=== PATIENT | female | born 1950 | race Two or more races ===

== ENCOUNTER 2017-03-25 17:25 | Emergency (ER) | payer MEDICARE ==
[2017-03-25 17:39] VITALS: PULSE 67; RESP 18
[2017-03-25] MEDS ORDERED: SODIUM CHLORIDE 0.9% 500 ML IV STA (18:09)
[2017-03-25] MEDS ORDERED: SODIUM CHLORIDE 0.9% 1,000 ML IV STA (18:09)
--- NOTE | 2017-03-25 18:12 | ED ---
General Adult HPI - General Chief complaint: Abdominal Pain Stated complaint: High blood pressure/had open heart 02/27/17 Time Seen by Provider: 03/25/17 17:51 Source: patient, family, RN notes reviewed, old records reviewed Mode of arrival: wheelchair Limitations: no limitations - History of Present Illness Initial comments: Patient 67-year-old female status post aortic ascending aneurysm repair times one month, who presents emergency room today with a chief complaint of lightheadedness times a week. She admits that she is on Augmentin 500/125 for urinary tract infection over this past week as well. She states she has had a little upset stomach. Denies any nausea, vomiting, diarrhea. Denies any specific abdominal pain. Admits that she has also had some sinus congestion and believes she has a sinus infection stating that the feeling that gets rid of them is Augmentin 875. Patient states she's tried amoxicillin 500 mg in the past for these with no relief. Patient does admit that she does see cardiology a week ago for routine follow-up and told them both lightheadedness that had started. This did not seem concerned. No blood work was obtained. States she' s had this lightheadedness now for the past weeks does seem to be worse with certain movements. She admits that it's worse when she bends forward. Patient denies any other complaints. Patient denies any recent fever, chills, shortness of breath, chest pain, back pain, nausea or vomiting, numbness or tingling, dysuria or hematuria, constipation or diarrhea, headaches or visual changes, or any other complaints. - Related Data Home Medications Medication Instructions Recorded Confirmed Acetaminophen Tab [Tylenol Tab] 1,000 mg PO TID 03/25/17 03/25/17 Amoxicillin/Potassium Clav 1 tab PO Q12HR 03/25/17 03/25/17 [Augmentin 500-125 Tablet] Aspirin 325 mg PO DAILY 03/25/17 03/25/17 Docusate [Colace] 100 mg PO BID 03/25/17 03/25/17 Lisinopril [Zestril] 20 mg PO BID 03/25/17 03/25/17 Metoprolol Tartrate [Lopressor] 50 mg PO BID 03/25/17 03/25/17 hydrALAZINE HCL [Apresoline] 10 mg PO TID 03/25/17 03/25/17 traZODone HCL 25 mg PO HS 03/25/17 03/25/17 Previous Rx's Medication Instructions Recorded Amoxicillin/Potassium Clav 1 each PO Q12HR #20 tab 03/25/17 [Augmentin 875-125 Tablet] Allergies Allergy/AdvReac Type Severity Reaction Status Date / Time cephalexin [From Keflex] Allergy Rash/Hives Verified 03/25/17 17:33 Corticosteroids Allergy Rash/Hives Verified 03/25/17 17:33 (Glucocorticoids) ciprofloxacin [From Cipro] AdvReac Rash/Hives Verified 03/25/17 17:33 sulfamethoxazole AdvReac Rash/Hives Verified 03/25/17 17:33 [From Bactrim] trimethoprim [From Bactrim] AdvReac Rash/Hives Verified 03/25/17 17:33 Review of Systems ROS Statement: Those systems with pertinent positive or pertinent negative responses have been documented in the HPI. ROS Other: All systems not noted in ROS Statement are negative. Past Medical History Past Medical History: Hypertension Additional Past Medical History / Comment(s): AAA repair (February 27 2017.) History of Any Multi-Drug Resistant Organisms: None Reported Past Surgical History: Section Additional Past Surgical History / Comment(s): AAA repair Past Psychological History: No Psychological Hx Reported Smoking Status: Current every day smoker Past Alcohol Use History: None Reported Past Drug Use History: None Reported General Exam - General Exam Comments Initial Comments: General: The patient is awake and alert, in no distress, and does not appear acutely ill. Eye: Pupils are equal, round and reactive to light, extra-ocular movements are intact. No nystagmus. There is normal conjunctiva bilaterally. No signs of icterus. Ears, nose, mouth and throat: There are moist mucous membranes and no oral lesions. Tender over both frontal and maxillary sinuses. Neck: The neck is supple, there is no tenderness or JVD. Cardiovascular: There is a regular rate and rhythm. No murmur, rub or gallop is appreciated. Respiratory: Lungs are clear to auscultation, respirations are non-labored, breath sounds are equal. No wheezes, stridor, rales, or rhonchi. Gastrointestinal: Soft, non-distended, non-tender abdomen without masses or organomegaly noted. There is no rebound or guarding present. No CVA tenderness. Bowel sounds are unremarkable. Musculoskeletal: Normal ROM, no tenderness. Strength 5/5. Sensation intact. Pulses equal bilaterally 2+. Neurological: A&O x 3. CN II-XII intact, There are no obvious motor or sensory deficits. Coordination appears grossly intact. Speech is normal. Skin: Skin is warm and dry and no rashes or lesions are noted. Psychiatric: Cooperative, appropriate mood & affect, normal judgment. Limitations: no limitations Course Vital Signs 03/25/17 03/25/17 17:33 19:02 Temperature 97.9 F Pulse Rate 67 Respiratory 18 Rate Blood Pressure 135/70 155/72 O2 Sat by Pulse 97 Oximetry EKG Findings - EKG Comments: EKG Findings:: EKG performed at 1815: A 12-lead EKG was performed and interpreted by me as showing the following: Rate is 68, and rhythm is normal sinus. There are normal QRS complexes and normal R-wave progression. ST segments have no elevation or depression, and [place] segments appear normal. Medical Decision Making - Medical Decision Making Patient reexamined at this time shows no signs of distress. Patient's EKG shows normal sinus rhythm. Chest x-rays unremarkable. Patient resting comfortably feeling better here in the emergency room. Labs been reviewed. Patient does have tenderness over the sinuses. His patient convinced that the Augmentin 500 mg of amoxicillin will not work for her symptoms.Case discussed in detail with attending physician Dr. Rico. Patient will be discharged home advised follow-up family doctor in her surgeon. Advised to use antibiotic as prescribed. Will be given prescription for Augmentin. Advised return if any symptoms increase or worsen or for any other concerns. - Lab Data Result diagrams: 03/25/17 18:10 03/25/17 18:10 Lab Results 03/25/17 03/25/17 03/25/17 Range/Units 18:10 18:10 18:10 WBC 8.5 (3.8-10.6) k/uL RBC 3.82 (3.80-5.40) m/uL Hgb 12.0 (11.4-16.0) gm/dL Hct 35.3 (34.0-46.0) % MCV 92.3 (80.0-100.0) fL MCH 31.5 (25.0-35.0) pg MCHC 34.1 (31.0-37.0) g/dL RDW 13.9 (11.5-15.5) % Plt Count 375 (150-450) k/uL Neutrophils % 74 % Lymphocytes % 14 % Monocytes % 5 % Eosinophils % 5 % Basophils % 1 % Neutrophils # 6.3 (1.3-7.7) k/uL Lymphocytes # 1.2 (1.0-4.8) k/uL Monocytes # 0.4 (0-1.0) k/uL Eosinophils # 0.4 (0-0.7) k/uL Basophils # 0.0 (0-0.2) k/uL PT 10.3 (9.0-12.0) sec INR 1.0 (<1.1) APTT 24.8 (22.0-30.0) sec Sodium 133 L (137-145) mmol/L Potassium 5.4 H (3.5-5.1) mmol/L Chloride 99 (98-107) mmol/L Carbon Dioxide 25 (22-30) mmol/L Anion Gap 9 mmol/L BUN 23 H (7-17) mg/dL Creatinine 0.90 (0.52-1.04) mg/dL Est GFR (MDRD) Af Amer >60 (>60 ml/min/1.73 sqM) Est GFR (MDRD) Non-Af >60 (>60 ml/min/1.73 sqM) Glucose 95 (74-99) mg/dL Calcium 12.1 H (8.4-10.2) mg/dL Total Bilirubin 0.5 (0.2-1.3) mg/dL AST 14 (14-36) U/L ALT 25 (9-52) U/L Alkaline Phosphatase 120 (38-126) U/L Troponin I (0.000-0.034) ng/mL Total Protein 7.1 (6.3-8.2) g/dL Albumin 4.2 (3.5-5.0) g/dL Urine Color Urine Appearance (Clear) Urine pH (5.0-8.0) Ur Specific [place] (1.001-1.035) Urine Protein (Negative) Urine Glucose (UA) (Negative) Urine Ketones (Negative) Urine Blood (Negative) Urine Nitrite (Negative) Urine Bilirubin (Negative) Urine Urobilinogen (<2.0) mg/dL Ur Leukocyte Esterase (Negative) 03/25/17 03/25/17 Range/Units 18:10 18:10 WBC (3.8-10.6) k/uL RBC (3.80-5.40) m/uL Hgb (11.4-16.0) gm/dL Hct (34.0-46.0) % MCV (80.0-100.0) fL MCH (25.0-35.0) pg MCHC (31.0-37.0) g/dL RDW (11.5-15.5) % Plt Count (150-450) k/uL Neutrophils % % Lymphocytes % % Monocytes % % Eosinophils % % Basophils % % Neutrophils # (1.3-7.7) k/uL Lymphocytes # (1.0-4.8) k/uL Monocytes # (0-1.0) k/uL Eosinophils # (0-0.7) k/uL Basophils # (0-0.2) k/uL PT (9.0-12.0) sec INR (<1.1) APTT (22.0-30.0) sec Sodium (137-145) mmol/L Potassium (3.5-5.1) mmol/L Chloride (98-107) mmol/L Carbon Dioxide (22-30) mmol/L Anion Gap mmol/L BUN (7-17) mg/dL Creatinine (0.52-1.04) mg/dL Est GFR (MDRD) Af Amer (>60 ml/min/1.73 sqM) Est GFR (MDRD) Non-Af (>60 ml/min/1.73 sqM) Glucose (74-99) mg/dL Calcium (8.4-10.2) mg/dL Total Bilirubin (0.2-1.3) mg/dL AST (14-36) U/L ALT (9-52) U/L Alkaline Phosphatase (38-126) U/L Troponin I <0.012 (0.000-0.034) ng/mL Total Protein (6.3-8.2) g/dL Albumin (3.5-5.0) g/dL Urine Color Colorless Urine Appearance Clear (Clear) Urine pH 5.5 (5.0-8.0) Ur Specific [place] 1.004 (1.001-1.035) Urine Protein Negative (Negative) Urine Glucose (UA) Negative (Negative) Urine Ketones Negative (Negative) Urine Blood Negative (Negative) Urine Nitrite Negative (Negative) Urine Bilirubin Negative (Negative) Urine Urobilinogen <2.0 (<2.0) mg/dL Ur Leukocyte Esterase Negative (Negative) Disposition Clinical Impression: Acute sinusitis Disposition: HOME SELF-CARE Condition: Good Instructions: Sinusitis (ED) Additional Instructions: Please discontinue previous antibiotic and begin new prescription of Augmentin. Please follow-up with family doctor in the next 2 days of symptoms. Please return to emergency room if the symptoms increase or worsen or for any other concerns. Prescriptions: Amoxicillin/Potassium Clav [Augmentin 875-125 Tablet] 1 each PO Q12HR #20 tab Referrals: Donavan Ruiz MD [Primary Care Provider] - 1-2 days Time of Disposition: 19:27
[2017-03-25 18:22] LABS: Appearance,Urine Clear (Clear); Basophils % (A) 1 %; Bilirubin,Urine Negative (Negative); CH 30.3; Eosinophils # (A) 0.4 k/uL (0-0.7); Eosinophils % (A) 5 %; Glucose,Urine (UA) Negative (Negative); HCT 35.3 % (34.0-46.0); HDW 2.91; Ketones,Urine Negative (Negative); Leukocyte Esterase,Urine Negative (Negative); Luc % (Auto) 2; Lymphocytes # (A) 1.2 k/uL (1.0-4.8); Lymphocytes % (A) 14 %; MCH 31.5 pg (25.0-35.0); MCHC 34.1 g/dL (31.0-37.0); MCV 92.3 fL (80.0-100.0); Mean Platelet Volume 6.9; Monocytes # (A) 0.4 k/uL (0-1.0); Monocytes % (A) 5 %; Neutrophils # (A) 6.3 k/uL (1.3-7.7); Neutrophils % (A) 74 %; Nitrite,Urine Negative (Negative); PH, Urine 5.5 (5.0-8.0); Protein,Urine Negative (Negative); RBC 3.82 m/uL (3.80-5.40); RDW 13.9 % (11.5-15.5); Specific Gravity,Urine 1.004 (1.001-1.035); UA Billing (MACRO vs. MICRO) CHEM; Urobilinogen,Urine <2.0 mg/dL (<2.0); WBC 8.5 k/uL (3.8-10.6); WBC (Perox) 9.13
[2017-03-25 18:35] LABS: Partial Thromboplastin Time 24.8 sec (22.0-30.0); Prothrombin Time 10.3 sec (9.0-12.0)
[2017-03-25 18:37] LABS: ALT 25 U/L (9-52); AST 14 U/L (14-36); Alkaline Phosphatase 120 U/L (38-126); Anion Gap 9 mmol/L; Blood Urea Nitrogen 23 mg/dL (7-17); Calcium 12.1 mg/dL (8.4-10.2); Carbon Dioxide 25 mmol/L (22-30); Chloride 99 mmol/L (98-107); Glucose 95 mg/dL (74-99); Non-African American GFR(MDRD) >60 (>60 ml/min/1.73 sqM); Potassium 5.4 mmol/L (3.5-5.1); Sodium 133 mmol/L (137-145); Total Bilirubin 0.5 mg/dL (0.2-1.3); Total Protein 7.1 g/dL (6.3-8.2)
--- NOTE | 2017-03-25 18:40 | XR ---
EXAMINATION TYPE: XR chest 2V DATE OF EXAM: 03/25/2017 COMPARISON: 07/14/2016 HISTORY: Dizziness TECHNIQUE: Frontal and lateral views of the chest are obtained. FINDINGS: Heart is enlarged. Thoracic aorta is atheromatous. There is no heart failure. Bones are so mewhat osteopenic. There is slight blunting of left costophrenic angle. There are sternal wires. IMPRESSION: Cardiomegaly. Atheromatous aorta. No acute lung disease. There is new minimal pleural re action at the left lateral lung base compared to old exam.
[2017-03-25 19:46] VITALS: BP 150/75; TEMP 97.7
== END 2017-03-25 19:46 | disposition home or self-care (01) ==
LOC: EC 17:25
DX: J01.90 Acute sinusitis, unspecified (principal); I10 Essential (primary) hypertension; F17.200 Nicotine dependence, unspecified, uncomplicated; Z98.890 Other specified postprocedural states; Z88.1 Allergy status to other antibiotic agents; Z88.2 Allergy status to sulfonamides; Z88.8 Allergy status to other drugs, medicaments and biological substances; Z79.82 Long term (current) use of aspirin; Z79.899 Other long term (current) drug therapy
CPT/HCPCS: 36415; 71020; 80053; 81003; 84484; 85025; 85610; 85730; 87086; 93005; 96360; 99284

== ENCOUNTER 2017-04-06 23:58 | Emergency (ER) | payer MEDICARE ==
[2017-04-07 00:53] LABS: Basophils % (A) 0 %; CH 30.9; CHCM 32.9; Eosinophils # (A) 0.7 k/uL (0-0.7); Eosinophils % (A) 7 %; HCT 34.4 % (34.0-46.0); HDW 2.63; HGB 11.1 gm/dL (11.4-16.0); Luc # (Auto) 0.12; Luc % (Auto) 1; Lymphocytes # (A) 1.8 k/uL (1.0-4.8); Lymphocytes % (A) 19 %; MCH 30.5 pg (25.0-35.0); MCHC 32.3 g/dL (31.0-37.0); MCV 94.3 fL (80.0-100.0); Monocytes # (A) 0.5 k/uL (0-1.0); Monocytes % (A) 5 %; Neutrophils # (A) 6.5 k/uL (1.3-7.7); Neutrophils % (A) 68 %; RBC 3.65 m/uL (3.80-5.40); RDW 14.7 % (11.5-15.5); WBC 9.6 k/uL (3.8-10.6); WBC (Perox) 9.63
[2017-04-07] MEDS ORDERED: ENALAPRILAT 1.25 MG/ML 1 ML VIAL IVP STA (00:56)
--- NOTE | 2017-04-07 01:04 | ED ---
General Adult HPI - General Chief complaint: Dizziness Stated complaint: high blood pressure/dizzy Time Seen by Provider: 04/07/17 00:30 Source: patient Mode of arrival: wheelchair Limitations: no limitations - History of Present Illness Initial comments: This patient is a 67-year-old woman who comes to the hospital with complaints about her blood pressure being elevated. She states she is concerned because she has had previous aortic aneurysm repair and was told that she needs to keep her blood pressure control. Her blood pressure has been elevated since early today. She has tried taking her medication and rechecked her blood pressure and it remains elevated. The patient is denying any symptoms related to the blood pressure being elevated much she states she is very anxious. She is not having headache, chest pain, abdominal pain, or any cough or dyspnea or neurologic symptoms. -: hour(s) Consistency: constant Improves with: none Worsens with: none Associated Symptoms: denies other symptoms Treatments Prior to Arrival: other (Antihypertensives) - Related Data Home Medications Medication Instructions Recorded Confirmed Acetaminophen Tab [Tylenol Tab] 1,000 mg PO TID 03/25/17 04/07/17 Amoxicillin/Potassium Clav 1 tab PO Q12HR 03/25/17 04/07/17 [Augmentin 500-125 Tablet] Aspirin 325 mg PO DAILY 03/25/17 04/07/17 Docusate [Colace] 100 mg PO BID 03/25/17 04/07/17 Lisinopril [Zestril] 20 mg PO BID 03/25/17 04/07/17 Metoprolol Tartrate [Lopressor] 50 mg PO BID 03/25/17 04/07/17 hydrALAZINE HCL [Apresoline] 10 mg PO TID 03/25/17 04/07/17 traZODone HCL 25 mg PO HS 03/25/17 04/07/17 Previous Rx's Medication Instructions Recorded Amoxicillin/Potassium Clav 1 each PO Q12HR #20 tab 03/25/17 [Augmentin 875-125 Tablet] ALPRAZolam [Xanax] 0.5 mg PO DAILY PRN #10 tablet 04/07/17 Diazepam [Valium] 2 mg PO BID PRN #14 tab 04/07/17 Allergies Allergy/AdvReac Type Severity Reaction Status Date / Time cephalexin [From Keflex] Allergy Rash/Hives Verified 04/07/17 00:05 Corticosteroids Allergy Rash/Hives Verified 04/07/17 00:05 (Glucocorticoids) ciprofloxacin [From Cipro] AdvReac Rash/Hives Verified 04/07/17 00:05 sulfamethoxazole AdvReac Rash/Hives Verified 04/07/17 00:05 [From Bactrim] trimethoprim [From Bactrim] AdvReac Rash/Hives Verified 04/07/17 00:05 Review of Systems ROS Statement: Those systems with pertinent positive or pertinent negative responses have been documented in the HPI. ROS Other: All systems not noted in ROS Statement are negative. Constitutional: Denies: fever, weakness Eyes: Denies: vision change Respiratory: Denies: cough, dyspnea Cardiovascular: Denies: chest pain, palpitations, orthopnea, syncope Gastrointestinal: Denies: abdominal pain, vomiting, diarrhea Musculoskeletal: Denies: back pain Neurological: Denies: headache, weakness, paresthesias Psychiatric: Reports: anxiety Past Medical History Past Medical History: Hypertension Additional Past Medical History / Comment(s): AAA repair (February 27 2017.) History of Any Multi-Drug Resistant Organisms: None Reported Past Surgical History: Section Additional Past Surgical History / Comment(s): AAA repair Past Psychological History: No Psychological Hx Reported Smoking Status: Current every day smoker Past Alcohol Use History: None Reported Past Drug Use History: None Reported General Exam Limitations: no limitations General appearance: alert, in no apparent distress, anxious Head exam: Present: atraumatic, normocephalic ENT exam: Present: normal oropharynx Respiratory exam: Present: normal lung sounds bilaterally. Absent: respiratory distress, wheezes, rales, rhonchi, stridor Cardiovascular Exam: Present: regular rate, normal rhythm, normal heart sounds. Absent: systolic murmur, diastolic murmur, rubs, gallop GI/Abdominal exam: Present: soft. Absent: distended, tenderness, guarding, rebound, rigid Extremities exam: Present: normal inspection, normal capillary refill. Absent: pedal edema, calf tenderness Back exam: Present: normal inspection. Absent: CVA tenderness (R), CVA tenderness (L) Neurological exam: Present: alert Skin exam: Present: warm, dry, intact, normal color. Absent: rash Course Vital Signs 04/07/17 04/07/17 04/07/17 00:02 00:58 01:24 Temperature 98.0 F Pulse Rate 61 58 L 66 Respiratory 18 18 18 Rate Blood Pressure 190/84 163/75 175/81 O2 Sat by Pulse 99 98 96 Oximetry 04/07/17 04/07/17 01:33 02:37 Temperature 97.4 F L Pulse Rate 66 70 Respiratory 18 16 Rate Blood Pressure 176/84 143/72 O2 Sat by Pulse 97 97 Oximetry EKG Findings - EKG Results: EKG: interpreted by ERMD, WNL, sinus rhythm (Rate 62 bpm), normal axis, normal QRS, normal ST/T, no acute changes - IN, Pacemaker, Normal: Normal tracing: normal tracing Medical Decision Making - Lab Data Result diagrams: 04/07/17 00:25 04/07/17 00:25 Lab Results 04/07/17 04/07/17 04/07/17 Range/Units 00:25 00:25 00:25 WBC 9.6 (3.8-10.6) k/uL RBC 3.65 L (3.80-5.40) m/uL Hgb 11.1 L (11.4-16.0) gm/dL Hct 34.4 (34.0-46.0) % MCV 94.3 (80.0-100.0) fL MCH 30.5 (25.0-35.0) pg MCHC 32.3 (31.0-37.0) g/dL RDW 14.7 (11.5-15.5) % Plt Count 328 (150-450) k/uL Neutrophils % 68 % Lymphocytes % 19 % Monocytes % 5 % Eosinophils % 7 % Basophils % 0 % Neutrophils # 6.5 (1.3-7.7) k/uL Lymphocytes # 1.8 (1.0-4.8) k/uL Monocytes # 0.5 (0-1.0) k/uL Eosinophils # 0.7 (0-0.7) k/uL Basophils # 0.0 (0-0.2) k/uL Sodium 134 L (137-145) mmol/L Potassium 5.4 H (3.5-5.1) mmol/L Chloride 100 (98-107) mmol/L Carbon Dioxide 25 (22-30) mmol/L Anion Gap 9 mmol/L BUN 25 H (7-17) mg/dL Creatinine 0.90 (0.52-1.04) mg/dL Est GFR (MDRD) Af Amer >60 (>60 ml/min/1.73 sqM) Est GFR (MDRD) Non-Af >60 (>60 ml/min/1.73 sqM) Glucose 89 (74-99) mg/dL Plasma Lactic Acid [place] (0.7-2.0) mmol/L Calcium 11.7 H (8.4-10.2) mg/dL Total Bilirubin 0.2 (0.2-1.3) mg/dL AST 13 L (14-36) U/L ALT 23 (9-52) U/L Alkaline Phosphatase 91 (38-126) U/L Troponin I <0.012 (0.000-0.034) ng/mL Total Protein 6.6 (6.3-8.2) g/dL Albumin 3.9 (3.5-5.0) g/dL Urine Color Urine Appearance (Clear) Urine pH (5.0-8.0) Ur Specific [place] (1.001-1.035) Urine Protein (Negative) Urine Glucose (UA) (Negative) Urine Ketones (Negative) Urine Blood (Negative) Urine Nitrite (Negative) Urine Bilirubin (Negative) Urine Urobilinogen (<2.0) mg/dL Ur Leukocyte Esterase (Negative) 04/07/17 04/07/17 Range/Units 00:50 02:00 WBC (3.8-10.6) k/uL RBC (3.80-5.40) m/uL Hgb (11.4-16.0) gm/dL Hct (34.0-46.0) % MCV (80.0-100.0) fL MCH (25.0-35.0) pg MCHC (31.0-37.0) g/dL RDW (11.5-15.5) % Plt Count (150-450) k/uL Neutrophils % % Lymphocytes % % Monocytes % % Eosinophils % % Basophils % % Neutrophils # (1.3-7.7) k/uL Lymphocytes # (1.0-4.8) k/uL Monocytes # (0-1.0) k/uL Eosinophils # (0-0.7) k/uL Basophils # (0-0.2) k/uL Sodium (137-145) mmol/L Potassium (3.5-5.1) mmol/L Chloride (98-107) mmol/L Carbon Dioxide (22-30) mmol/L Anion Gap mmol/L BUN (7-17) mg/dL Creatinine (0.52-1.04) mg/dL Est GFR (MDRD) Af Amer (>60 ml/min/1.73 sqM) Est GFR (MDRD) Non-Af (>60 ml/min/1.73 sqM) Glucose (74-99) mg/dL Plasma Lactic Acid [place] 0.7 (0.7-2.0) mmol/L Calcium (8.4-10.2) mg/dL Total Bilirubin (0.2-1.3) mg/dL AST (14-36) U/L ALT (9-52) U/L Alkaline Phosphatase (38-126) U/L Troponin I (0.000-0.034) ng/mL Total Protein (6.3-8.2) g/dL Albumin (3.5-5.0) g/dL Urine Color Colorless Urine Appearance Clear (Clear) Urine pH 7.0 (5.0-8.0) Ur Specific [place] 1.003 (1.001-1.035) Urine Protein Negative (Negative) Urine Glucose (UA) Negative (Negative) Urine Ketones Negative (Negative) Urine Blood Negative (Negative) Urine Nitrite Negative (Negative) Urine Bilirubin Negative (Negative) Urine Urobilinogen <2.0 (<2.0) mg/dL Ur Leukocyte Esterase Negative (Negative) Disposition Clinical Impression: Hypertension Disposition: HOME SELF-CARE Condition: Good Instructions: Hypertension (ED) Prescriptions: ALPRAZolam [Xanax] 0.5 mg PO DAILY PRN #10 tablet PRN Reason: Anxiety Diazepam [Valium] 2 mg PO BID PRN #14 tab PRN Reason: Anxiety Referrals: Donavan Ruiz MD [Primary Care Provider] - 1-2 days
[2017-04-07 01:12] LABS: ALT 23 U/L (9-52); AST 13 U/L (14-36); Alkaline Phosphatase 91 U/L (38-126); Anion Gap 9 mmol/L; Blood Urea Nitrogen 25 mg/dL (7-17); Calcium 11.7 mg/dL (8.4-10.2); Carbon Dioxide 25 mmol/L (22-30); Chloride 100 mmol/L (98-107); Glucose 89 mg/dL (74-99); Non-African American GFR(MDRD) >60 (>60 ml/min/1.73 sqM); Potassium 5.4 mmol/L (3.5-5.1); Sodium 134 mmol/L (137-145); Total Bilirubin 0.2 mg/dL (0.2-1.3); Total Protein 6.6 g/dL (6.3-8.2)
--- NOTE | 2017-04-07 01:19 | XR ---
EXAM: XR Chest, 1 View CLINICAL HISTORY: Reason: dizziness TECHNIQUE: Frontal view of the chest. COMPARISON: Chest x-ray dated 03/25/2017 FINDINGS: Lungs: Unremarkable. No consolidation. Pleural space: Unremarkable. No pneumothorax. Heart: Heart is again noted to be enlarged. No evidence of heart failure. Mediastinum: Unchanged. Bones/joints: Osteopenia is again suggested. Sternotomy wires are again seen. Vasculature: Thoracic aorta is at the atheromatous. IMPRESSION: Cardiomegaly, unchanged. No acute lung findings. No significant interval change.
[2017-04-07] MEDS ORDERED: DIAZEPAM 5 MG/ML 2 ML SYRINGE IVP STA (01:40)
[2017-04-07 02:09] LABS: Appearance,Urine Clear (Clear); Bilirubin,Urine Negative (Negative); Glucose,Urine (UA) Negative (Negative); Ketones,Urine Negative (Negative); Leukocyte Esterase,Urine Negative (Negative); Nitrite,Urine Negative (Negative); Protein,Urine Negative (Negative); Specific Gravity,Urine 1.003 (1.001-1.035); UA Billing (MACRO vs. MICRO) CHEM; Urobilinogen,Urine <2.0 mg/dL (<2.0)
[2017-04-07 02:39] VITALS: BP 143/72; PULSE 70; RESP 16; TEMP 97.4
== END 2017-04-07 03:22 | disposition home or self-care (01) ==
LOC: EC 23:58
DX: I10 Essential (primary) hypertension (principal); F41.9 Anxiety disorder, unspecified; F17.200 Nicotine dependence, unspecified, uncomplicated; Z88.1 Allergy status to other antibiotic agents; Z88.2 Allergy status to sulfonamides; Z88.8 Allergy status to other drugs, medicaments and biological substances; Z79.1 Long term (current) use of non-steroidal anti-inflammatories (NSAID); Z79.82 Long term (current) use of aspirin; Z79.899 Other long term (current) drug therapy
CPT/HCPCS: 99284; 96374; 96375; 36415; 93005; 80053; 83605; 84484; 85025; 81003; 71010; J3360

== ENCOUNTER 2017-05-08 00:30 | Emergency (ER) | payer MEDICARE ==
[2017-05-08 00:39] VITALS: TEMP 97.3
--- NOTE | 2017-05-08 00:56 | ED ---
General Adult HPI - General Chief complaint: Recheck/Abnormal Lab/Rx Stated complaint: problems post op Time Seen by Provider: 05/08/17 00:40 Source: patient, RN notes reviewed Mode of arrival: wheelchair Limitations: no limitations - History of Present Illness Initial comments: 67-year-old female presents emergency Department with concerns that she may have disrupted her sternal wire. Patient states that she lifted a box have reviewed and she thought yesterday. Patient states she had thoracic aneurysm repair performed at [facility] 2 months ago. She states she's also slipped bending over 10 pounds states that this box was heavier than that. She states that she had a little bit of pain in her lower rib and chest wall region. She states that she thought she heard some clicking and was concerned about this. She states pain is not worsened usual this time denies any shortness breath no fever or chills. She denies any abdominal pain and states that her hernia is a normal size as it usually is. - Related Data Home Medications Medication Instructions Recorded Confirmed Acetaminophen Tab [Tylenol Tab] 1,000 mg PO TID 03/25/17 04/07/17 Amoxicillin/Potassium Clav 1 tab PO Q12HR 03/25/17 04/07/17 [Augmentin 500-125 Tablet] Aspirin 325 mg PO DAILY 03/25/17 04/07/17 Docusate [Colace] 100 mg PO BID 03/25/17 04/07/17 Lisinopril [Zestril] 20 mg PO BID 03/25/17 04/07/17 Metoprolol Tartrate [Lopressor] 50 mg PO BID 03/25/17 04/07/17 hydrALAZINE HCL [Apresoline] 10 mg PO TID 03/25/17 04/07/17 traZODone HCL 25 mg PO HS 03/25/17 04/07/17 Previous Rx's Medication Instructions Recorded Amoxicillin/Potassium Clav 1 each PO Q12HR #20 tab 03/25/17 [Augmentin 875-125 Tablet] ALPRAZolam [Xanax] 0.5 mg PO DAILY PRN #10 tablet 04/07/17 Diazepam [Valium] 2 mg PO BID PRN #14 tab 04/07/17 Allergies Allergy/AdvReac Type Severity Reaction Status Date / Time cephalexin [From Keflex] Allergy Rash/Hives Verified 05/08/17 00:39 Corticosteroids Allergy Rash/Hives Verified 05/08/17 00:39 (Glucocorticoids) ciprofloxacin [From Cipro] AdvReac Rash/Hives Verified 05/08/17 00:39 sulfamethoxazole AdvReac Rash/Hives Verified 05/08/17 00:39 [From Bactrim] trimethoprim [From Bactrim] AdvReac Rash/Hives Verified 05/08/17 00:39 Review of Systems ROS Statement: Those systems with pertinent positive or pertinent negative responses have been documented in the HPI. ROS Other: All systems not noted in ROS Statement are negative. Past Medical History Past Medical History: Hypertension Additional Past Medical History / Comment(s): AAA repair (February 27 2017.) History of Any Multi-Drug Resistant Organisms: None Reported Past Surgical History: Section Additional Past Surgical History / Comment(s): AAA repair Past Psychological History: No Psychological Hx Reported Smoking Status: Current every day smoker Past Alcohol Use History: None Reported Past Drug Use History: None Reported General Exam Limitations: no limitations General appearance: alert, in no apparent distress Head exam: Present: atraumatic, normocephalic, normal inspection Neck exam: Present: normal inspection. Absent: tenderness, meningismus, lymphadenopathy Respiratory exam: Present: normal lung sounds bilaterally, chest wall tenderness (Mild lower sternal tenderness), other (CHEST wall surgical scar). Absent: respiratory distress, wheezes, rales, rhonchi, stridor Cardiovascular Exam: Present: regular rate, normal rhythm, normal heart sounds. Absent: systolic murmur, diastolic murmur, rubs, gallop, clicks GI/Abdominal exam: Present: soft, normal bowel sounds, hernia (Large ventral hernia). Absent: distended, tenderness, guarding, rebound, rigid Course Vital Signs 05/08/17 00:35 Temperature 97.3 F L Pulse Rate 69 Respiratory 20 Rate Blood Pressure 152/68 O2 Sat by Pulse 96 Oximetry Medical Decision Making - Medical Decision Making 67-year-old female presented for recheck. Patient had some pain after lifting the box that was 20 pounds. Patient lifting more weights and she was to postop. Patient states that currently the pain is not worsened usual and she only takes Tylenol. Patient's chest x-ray does not show any disruption of the sternal wires lungs are fully expanded and she has a benign exam. Patient most likely has pain from over lifting and chest wall injury. Patient will be discharged at this time. We discussed possibility CT though she declined. Disposition Clinical Impression: Chest wall pain Disposition: HOME SELF-CARE Condition: Stable Instructions: Chest Wall Pain (ED) Additional Instructions: Please return to the Emergency Department if symptoms worsen or any other concerns. Referrals: Donavan Ruiz MD [Primary Care Provider] - 1-2 days Time of Disposition: 02:07
[2017-05-08 02:28] VITALS: BP 143/67; PULSE 65; RESP 18
--- NOTE | 2017-05-08 02:36 | XR ---
History: Reason: Pain Exam: XR CXR 2 VIEWS Comparison: Comparison 03/25 and FINDINGS: The lungs are clear. No pleural effusion. Cardiac silhouette appears unchanged. Status post median sternotomy and changes relating to the proximal aorta again noted. The sternotomy wires appear intact. IMPRESSION: The lungs are clear. No pleural effusion. Cardiac silhouette appears unchanged. Status post median sternotomy and changes relating to the proximal aorta again noted. The sternotomy wires appear intact.
== END 2017-05-08 02:27 | disposition home or self-care (01) ==
LOC: EC 00:30
DX: R07.89 Other chest pain (principal); K43.9 Ventral hernia without obstruction or gangrene; I71.4 Abdominal aortic aneurysm, without rupture; I10 Essential (primary) hypertension; F17.200 Nicotine dependence, unspecified, uncomplicated; Z98.890 Other specified postprocedural states; Z88.1 Allergy status to other antibiotic agents; Z88.2 Allergy status to sulfonamides; Z88.8 Allergy status to other drugs, medicaments and biological substances; Z79.82 Long term (current) use of aspirin; Z79.899 Other long term (current) drug therapy; X50.0XXA Overexertion from strenuous movement or load, initial encounter
CPT/HCPCS: 71020; 99283

== ENCOUNTER 2017-05-16 02:35 | Emergency (ER) | payer MEDICARE ==
[2017-05-16 02:47] VITALS: TEMP 97.9
[2017-05-16] MEDS ORDERED: MECLIZINE 12.5 MG TAB PO STA (03:16)
[2017-05-16] MEDS ORDERED: SODIUM CHLORIDE 0.9% 1,000 ML IV STA (03:16)
[2017-05-16 03:53] LABS: Basophils % (A) 0 %; CH 31.4; CHCM 33.3; Eosinophils # (A) 0.7 k/uL (0-0.7); Eosinophils % (A) 8 %; HCT 37.7 % (34.0-46.0); HDW 2.52; HGB 12.5 gm/dL (11.4-16.0); Luc # (Auto) 0.17; Luc % (Auto) 2; Lymphocytes # (A) 1.8 k/uL (1.0-4.8); Lymphocytes % (A) 23 %; MCH 31.5 pg (25.0-35.0); MCHC 33.3 g/dL (31.0-37.0); MCV 94.5 fL (80.0-100.0); Mean Platelet Volume 6.9; Monocytes # (A) 0.4 k/uL (0-1.0); Monocytes % (A) 6 %; Neutrophils # (A) 4.8 k/uL (1.3-7.7); Neutrophils % (A) 61 %; RBC 3.98 m/uL (3.80-5.40); RDW 14.4 % (11.5-15.5); WBC 7.9 k/uL (3.8-10.6); WBC (Perox) 7.91
[2017-05-16 03:54] LABS: Appearance,Urine Clear (Clear); Bilirubin,Urine Negative (Negative); Glucose,Urine (UA) Negative (Negative); Ketones,Urine Negative (Negative); Leukocyte Esterase,Urine Negative (Negative); Nitrite,Urine Negative (Negative); Protein,Urine Negative (Negative); Specific Gravity,Urine 1.004 (1.001-1.035); UA Billing (MACRO vs. MICRO) CHEM; Urobilinogen,Urine <2.0 mg/dL (<2.0)
--- NOTE | 2017-05-16 04:11 | CT ---
EXAM: CT Maxillofacial Sinuses Without Intravenous Contrast CLINICAL HISTORY: Pain TECHNIQUE: Computed tomography images of the maxillofacial sinuses without intravenous contrast. CTDI is 60.30 mGy and DLP is 1537.30 mGy-cm. This CT exam was performed using one or more of the following dose reduction techniques: automated exposure control, adjustment of the mA and/or kV according to patient size, and/or use of iterative reconstruction technique. COMPARISON: No relevant prior studies available. FINDINGS: Maxillary sinuses: Minimal mucosal thickening. No air-fluid levels. Sphenoid sinuses: Unremarkable. No air-fluid levels. Frontal sinuses: Hypoplastic right frontal sinus. No air-fluid levels. Ethmoid air cells: Minimal mucosal thickening. No air-fluid levels. Nasal cavity/septum: No acute findings. Bones/joints: No acute fracture. Soft tissues: Unremarkable. Orbits: The globes and orbits are intact. Dental: Dental caries with apical lucencies seen within the maxilla suggesting periodontal disease. IMPRESSION: No acute findings.
--- NOTE | 2017-05-16 04:12 | CT ---
EXAM: CT Head Without Intravenous Contrast CLINICAL HISTORY: Pain TECHNIQUE: Axial computed tomography images of the head/brain without intravenous contrast. CTDI is 60.30 mGy and DLP is 1537.30 mGy-cm. This CT exam was performed using one or more of the following dose reduction techniques: automated exposure control, adjustment of the mA and/or kV according to patient size, and/or use of iterative reconstruction technique. COMPARISON: No relevant prior studies available. FINDINGS: Brain: No evidence of acute infarct, hemorrhage, mass or edema. Minimal chronic small vessel ischemic disease. Ventricles: Unremarkable. No ventriculomegaly. Bones/joints: Unremarkable. No acute fracture. Soft tissues: Unremarkable. Sinuses: Unremarkable as visualized. No acute sinusitis. Mastoid air cells: Unremarkable as visualized. No mastoid effusion. IMPRESSION: No acute findings.
--- NOTE | 2017-05-16 04:35 | XR ---
EXAM: XR Chest, 2 Views CLINICAL HISTORY: Pneumonia TECHNIQUE: Frontal and lateral views of the chest. COMPARISON: Chest x-ray dated 05/08/2017 FINDINGS: Lungs: Unremarkable. No consolidation. Pleural space: Unremarkable. No pneumothorax. Heart: Moderate enlargement of the cardiomediastinal silhouette. Mediastinum: See Post surgical changes within the thoracic aorta with aneurysmal dilatation of the descending thoracic aorta. Bones/joints: Evidence of prior median sternotomy. Degenerative changes of the osseous structures. IMPRESSION: No acute findings.
[2017-05-16 04:40] LABS: ALT 26 U/L (9-52); AST 15 U/L (14-36); Alkaline Phosphatase 77 U/L (38-126); Anion Gap 7 mmol/L; Blood Urea Nitrogen 26 mg/dL (7-17); Calcium 11.3 mg/dL (8.4-10.2); Carbon Dioxide 26 mmol/L (22-30); Chloride 104 mmol/L (98-107); Glucose 89 mg/dL (74-99); Non-African American GFR(MDRD) >60 (>60 ml/min/1.73 sqM); Potassium 4.7 mmol/L (3.5-5.1); Sodium 137 mmol/L (137-145); Total Bilirubin 0.2 mg/dL (0.2-1.3); Total Protein 7.1 g/dL (6.3-8.2)
--- NOTE | 2017-05-16 04:44 | ED ---
General Adult HPI - General Chief complaint: Recheck/Abnormal Lab/Rx Stated complaint: High BP Time Seen by Provider: 05/16/17 03:01 Source: patient, family Mode of arrival: wheelchair Limitations: no limitations - History of Present Illness Initial comments: 67 years old female presents with the high blood pressure, blood pressure was quite high today was 176/79 she checked her blood pressure multiple times and it : High heart. She also been feeling dizzy and been spitting up green phlegm denies any fever no chills no chest pain or shortness of breath no pleuritic chest pain. She does have a history of high blood pressure she does take her medications and she has been compliant with her medication review of system are otherwise unremarkable - Related Data Home Medications Medication Instructions Recorded Confirmed Acetaminophen Tab [Tylenol Tab] 1,000 mg PO TID 03/25/17 05/16/17 Amoxicillin/Potassium Clav 1 tab PO Q12HR 03/25/17 05/16/17 [Augmentin 500-125 Tablet] Aspirin 325 mg PO DAILY 03/25/17 05/16/17 Docusate [Colace] 100 mg PO BID 03/25/17 05/16/17 Lisinopril [Zestril] 20 mg PO BID 03/25/17 05/16/17 Metoprolol Tartrate [Lopressor] 50 mg PO BID 03/25/17 05/16/17 hydrALAZINE HCL [Apresoline] 10 mg PO TID 03/25/17 05/16/17 traZODone HCL 25 mg PO HS 03/25/17 05/16/17 Previous Rx's Medication Instructions Recorded Amoxicillin/Potassium Clav 1 each PO Q12HR #20 tab 03/25/17 [Augmentin 875-125 Tablet] ALPRAZolam [Xanax] 0.5 mg PO DAILY PRN #10 tablet 04/07/17 Diazepam [Valium] 2 mg PO BID PRN #14 tab 04/07/17 Amoxicillin 500 mg PO Q8H #30 capsule 05/16/17 Meclizine [Antivert] 25 mg PO TID #15 tab 05/16/17 Allergies Allergy/AdvReac Type Severity Reaction Status Date / Time cephalexin [From Keflex] Allergy Rash/Hives Verified 05/16/17 02:47 Corticosteroids Allergy Rash/Hives Verified 05/16/17 02:47 (Glucocorticoids) ciprofloxacin [From Cipro] AdvReac Rash/Hives Verified 05/16/17 02:47 sulfamethoxazole AdvReac Rash/Hives Verified 05/16/17 02:47 [From Bactrim] trimethoprim [From Bactrim] AdvReac Rash/Hives Verified 05/16/17 02:47 Review of Systems ROS Statement: Those systems with pertinent positive or pertinent negative responses have been documented in the HPI. ROS Other: All systems not noted in ROS Statement are negative. Past Medical History Past Medical History: Hypertension Additional Past Medical History / Comment(s): AAA repair (February 27 2017.) History of Any Multi-Drug Resistant Organisms: None Reported Past Surgical History: Section Additional Past Surgical History / Comment(s): AAA repair Past Psychological History: No Psychological Hx Reported Smoking Status: Current every day smoker Past Alcohol Use History: None Reported Past Drug Use History: None Reported General Exam - General Exam Comments Initial Comments: General: The patient is awake and alert, in no distress, and does not appear acutely ill. Skin: Skin is warm and dry and no rashes or lesions are noted. Eye: Pupils are equal, round and reactive to light, extra-ocular movements are intact; there is normal conjunctiva bilaterally. Ears, nose, mouth and throat: She is tender over the maxillary sinuses bilaterally Neck: The neck is supple, there is no tenderness or JVD. Cardiovascular: There is a regular rate and rhythm. No murmur, rub or gallop is appreciated. Respiratory: To auscultation bilateral, no wheezing no rhonchi no distress respiratory de luna noticed Gastrointestinal: Soft, non-distended, non-tender abdomen without masses or organomegaly noted. There is no rebound or guarding present. Bowel sounds are unremarkable. Back: There is no tenderness to palpation in the midline. There is no obvious deformity. Musculoskeletal: Normal ROM, no tenderness, There is no pedal edema. There is no calf tenderness or swelling. No cords were appreciated. Neurological: CN II-XII intact, Cranial nerves III through XII are intact. There are no obvious motor or sensory deficits. Coordination appears grossly intact. Speech is normal. Psychiatric: Cooperative, appropriate mood & affect, normal judgment. Limitations: no limitations Course Vital Signs 05/16/17 05/16/17 05/16/17 02:42 03:44 04:10 Temperature 97.9 F Pulse Rate 57 L 77 70 Pulse Rate [ Pulse Oximetery ] Respiratory 20 18 18 Rate Blood Pressure 176/79 181/77 181/70 Blood Pressure [Left Arm Sitting] Blood Pressure [Left Arm Standing] Blood Pressure [Left Arm Supine] O2 Sat by Pulse 99 99 99 Oximetry 05/16/17 05/16/17 04:29 05:38 Temperature Pulse Rate 70 Pulse Rate [ 67 Pulse Oximetery ] Respiratory 18 16 Rate Blood Pressure 167/72 Blood Pressure 162/74 [Left Arm Sitting] Blood Pressure 193/91 [Left Arm Standing] Blood Pressure 179/81 [Left Arm Supine] O2 Sat by Pulse 96 99 Oximetry At 5:30 patient was offered to come in the hospital for observation for high blood pressure at this point she prefers to go home, she had a quite stressful day and she didn't get adequate sleep as well, will try Vasotec IV considering her heart rate is on the lower side abdominal tried labetalol for now - Reevaluation(s) Reevaluation #1: 05/16/17 05:46 At term 546 blood pressure is 156 and she was to go home no complaints at this point, she will go normal on antibiotics for otitis media and Antivert for dizziness and she will follow-up with her family doctor EKG Findings - EKG Comments: EKG Findings:: EKG is normal sinus rhythm ventricular rate is 56 NC interval is 142 QRS duration is 84 QT/QTC 380/366 review of this EKG reveals T-wave inversion in lead 1 and V1 and V2 and V3 no ST elevation noticed in the other leads Medical Decision Making - Lab Data Result diagrams: 05/16/17 03:30 05/16/17 03:30 Lab Results 05/16/17 05/16/17 05/16/17 Range/Units 03:30 03:30 03:30 WBC 7.9 (3.8-10.6) k/uL RBC 3.98 (3.80-5.40) m/uL Hgb 12.5 (11.4-16.0) gm/dL Hct 37.7 (34.0-46.0) % MCV 94.5 (80.0-100.0) fL MCH 31.5 (25.0-35.0) pg MCHC 33.3 (31.0-37.0) g/dL RDW 14.4 (11.5-15.5) % Plt Count 246 (150-450) k/uL Neutrophils % 61 % Lymphocytes % 23 % Monocytes % 6 % Eosinophils % 8 % Basophils % 0 % Neutrophils # 4.8 (1.3-7.7) k/uL Lymphocytes # 1.8 (1.0-4.8) k/uL Monocytes # 0.4 (0-1.0) k/uL Eosinophils # 0.7 (0-0.7) k/uL Basophils # 0.0 (0-0.2) k/uL Sodium 137 (137-145) mmol/L Potassium 4.7 (3.5-5.1) mmol/L Chloride 104 (98-107) mmol/L Carbon Dioxide 26 (22-30) mmol/L Anion Gap 7 mmol/L BUN 26 H (7-17) mg/dL Creatinine 0.85 (0.52-1.04) mg/dL Est GFR (MDRD) Af Amer >60 (>60 ml/min/1.73 sqM) Est GFR (MDRD) Non-Af >60 (>60 ml/min/1.73 sqM) Glucose 89 (74-99) mg/dL Calcium 11.3 H (8.4-10.2) mg/dL Total Bilirubin 0.2 (0.2-1.3) mg/dL AST 15 (14-36) U/L ALT 26 (9-52) U/L Alkaline Phosphatase 77 (38-126) U/L Troponin I 0.030 (0.000-0.034) ng/mL Total Protein 7.1 (6.3-8.2) g/dL Albumin 4.2 (3.5-5.0) g/dL Urine Color Urine Appearance (Clear) Urine pH (5.0-8.0) Ur Specific [place] (1.001-1.035) Urine Protein (Negative) Urine Glucose (UA) (Negative) Urine Ketones (Negative) Urine Blood (Negative) Urine Nitrite (Negative) Urine Bilirubin (Negative) Urine Urobilinogen (<2.0) mg/dL Ur Leukocyte Esterase (Negative) 05/16/17 Range/Units 03:30 WBC (3.8-10.6) k/uL RBC (3.80-5.40) m/uL Hgb (11.4-16.0) gm/dL Hct (34.0-46.0) % MCV (80.0-100.0) fL MCH (25.0-35.0) pg MCHC (31.0-37.0) g/dL RDW (11.5-15.5) % Plt Count (150-450) k/uL Neutrophils % % Lymphocytes % % Monocytes % % Eosinophils % % Basophils % % Neutrophils # (1.3-7.7) k/uL Lymphocytes # (1.0-4.8) k/uL Monocytes # (0-1.0) k/uL Eosinophils # (0-0.7) k/uL Basophils # (0-0.2) k/uL Sodium (137-145) mmol/L Potassium (3.5-5.1) mmol/L Chloride (98-107) mmol/L Carbon Dioxide (22-30) mmol/L Anion Gap mmol/L BUN (7-17) mg/dL Creatinine (0.52-1.04) mg/dL Est GFR (MDRD) Af Amer (>60 ml/min/1.73 sqM) Est GFR (MDRD) Non-Af (>60 ml/min/1.73 sqM) Glucose (74-99) mg/dL Calcium (8.4-10.2) mg/dL Total Bilirubin (0.2-1.3) mg/dL AST (14-36) U/L ALT (9-52) U/L Alkaline Phosphatase (38-126) U/L Troponin I (0.000-0.034) ng/mL Total Protein (6.3-8.2) g/dL Albumin (3.5-5.0) g/dL Urine Color Colorless Urine Appearance Clear (Clear) Urine pH 6.0 (5.0-8.0) Ur Specific [place] 1.004 (1.001-1.035) Urine Protein Negative (Negative) Urine Glucose (UA) Negative (Negative) Urine Ketones Negative (Negative) Urine Blood Negative (Negative) Urine Nitrite Negative (Negative) Urine Bilirubin Negative (Negative) Urine Urobilinogen <2.0 (<2.0) mg/dL Ur Leukocyte Esterase Negative (Negative) Critical Care Time Total Critical Care Time: 30 Critical Care Time: She presented with a high blood pressure blood pressure was greater than systolic 200 and diastolic was over 100 she also presents with the dizziness studies were reviewed at 5 AM CBC, urinalysis, head CT, sinusitis CT are normal chest x-ray is normal as well a blood pressure was in the mean systolic blood pressure was still around 190 systolic she was given some Ativan considering she was quite anxious and then now when he ever give her hydralazine 20 mg IV and will continue to monitor blood pressure Patient is reassessed again now mom 519 in the morning blood pressure still high Disposition Clinical Impression: Hypertension, Dizziness, Otitis Disposition: HOME SELF-CARE Condition: Good Instructions: Vertigo (ED) Prescriptions: Amoxicillin 500 mg PO Q8H #30 capsule Meclizine [Antivert] 25 mg PO TID #15 tab Referrals: Donavan Ruiz MD [Primary Care Provider] - 1-2 days
[2017-05-16] MEDS ORDERED: LORazepam 1 MG TAB PO STA (04:56)
[2017-05-16] MEDS ORDERED: hydrALAZINE HCL 20 MG/ML 1 ML VIAL IVP STA (04:58)
[2017-05-16] MEDS ORDERED: ENALAPRILAT 1.25 MG/ML 1 ML VIAL IVP STA (05:31)
[2017-05-16 05:38] VITALS: PULSE 70; RESP 16
[2017-05-16 06:06] VITALS: BP 154/70
== END 2017-05-16 06:04 | disposition home or self-care (01) ==
LOC: EC 02:35
DX: I10 Essential (primary) hypertension (principal); R42 Dizziness and giddiness; H66.90 Otitis media, unspecified, unspecified ear; F17.200 Nicotine dependence, unspecified, uncomplicated; Z98.890 Other specified postprocedural states; Z53.8 Procedure and treatment not carried out for other reasons; Z88.1 Allergy status to other antibiotic agents; Z88.2 Allergy status to sulfonamides; Z88.8 Allergy status to other drugs, medicaments and biological substances; Z79.82 Long term (current) use of aspirin; Z79.899 Other long term (current) drug therapy
CPT/HCPCS: 36415; 93005; 80053; 84484; 85025; 81003; 71020; 70450; 70486; 99285; 96374; 96361 ×2; J0360

== ENCOUNTER 2018-10-20 01:09 | Emergency (ER) | payer MEDICARE, OTHER ==
[2018-10-20 01:20] VITALS: TEMP 97.8
[2018-10-20] MEDS ORDERED: DIPH,PERTUS(ACELL)TETVAC-LF 0.5 ML VIAL IM ONE (01:22)
[2018-10-20] MEDS ORDERED: SODIUM CHLORIDE 0.9% 500 ML 500 ML IV STA (01:22)
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
--- NOTE | 2018-10-20 01:59 | XR ---
EXAMINATION TYPE: XR chest 1V portable DATE OF EXAM: 10/20/2018 COMPARISON: 05/16/2017 HISTORY: Pain TECHNIQUE: Single frontal view of the chest is obtained. FINDINGS: There is no heart failure nor confluent pneumonic infiltrate. Costophrenic angles are pa r. There are sternal wires. Thoracic aorta is atheromatous. IMPRESSION: Atheromatous aorta. No active cardiopulmonary disease. No change.
--- NOTE | 2018-10-20 02:00 | XR ---
EXAMINATION TYPE: XR pelvis AP view DATE OF EXAM: 10/20/2018 COMPARISON: NONE HISTORY: Pain TECHNIQUE: 2 views FINDINGS: Pelvic ring is intact. Proximal femurs and hip joints are intact. Sacroiliac joints appear normal. IMPRESSION: Negative exam. No fracture.
--- NOTE | 2018-10-20 02:03 | CT ---
EXAMINATION TYPE: CT brain yamil santiago con DATE OF EXAM: 10/20/2018 COMPARISON: CT brain 05/16/2017 HISTORY: fall CT DLP: 1065.0 mGycm Automated exposure control for dose reduction was used. TECHNIQUE: CT scan of the head and cervical spine are performed without contrast. FINDINGS: Ventricles have normal size. There is no mass effect nor midline shift. There is no sign of intracranial hemorrhage. There is large left frontal scalp hematoma. The calvarium is intact. The cervical vertebra have normal alignment. Posterior elements are intact. Facet joints are intact. There is slight narrowing of the cervical disc spaces. Skull base appears intact. IMPRESSION: Negative CT scan of the brain. Brain unchanged compared to old exam. Left frontal scalp hematoma. Minor degenerative changes in the cervical spine. No fracture.
--- NOTE | 2018-10-20 02:05 | CT ---
EXAMINATION TYPE: CT facial bones wo con DATE OF EXAM: 10/20/2018 COMPARISON: None HISTORY: fall pain CT DLP: mGycm Automated exposure control for dose reduction was used. TECHNIQUE: CT scan of the sinuses is performed without contrast, axial images are obtained, coronal r eformatted images are also reviewed. FINDINGS: The mandibular ring is intact. The maxilla is intact. Zygomatic arches appear normal. There is no evidence of a blowout fracture. Orbital margins are intact. There is fairly normal aeration of the paranasal sinuses. There is large left frontal scalp hematoma that measures up to 1.3 cm in thickness. I see no skull fr acture. There is no evidence of retro-orbital mass. IMPRESSION: Left frontal scalp hematoma. No facial bone fracture seen.
[2018-10-20 02:22] LABS: Basophils % (A) 0 %; Eosinophils # (A) 0.4 k/uL (0-0.7); Eosinophils % (A) 5 %; HCT 37.5 % (34.0-46.0); HGB 12.6 gm/dL (11.4-16.0); Lymphocytes # (A) 1.5 k/uL (1.0-4.8); Lymphocytes % (A) 17 %; MCH 30.1 pg (25.0-35.0); MCHC 33.7 g/dL (31.0-37.0); MCV 89.3 fL (80.0-100.0); Mean Platelet Volume 7.1; Monocytes # (A) 0.5 k/uL (0-1.0); Monocytes % (A) 5 %; Neutrophils # (A) 6.3 k/uL (1.3-7.7); Neutrophils % (A) 71 %; Platelet Count 210 k/uL (150-450); RDW 13.6 % (11.5-15.5); WBC 8.9 k/uL (3.8-10.6)
[2018-10-20 02:34] LABS: ALT 25 U/L (9-52); AST 15 U/L (14-36); Albumin 4.2 g/dL (3.5-5.0); Alcohol <10 mg/dL; Alkaline Phosphatase 87 U/L (38-126); Anion Gap 7 mmol/L; Blood Urea Nitrogen 53 mg/dL (7-17); Calcium 11.4 mg/dL (8.4-10.2); Carbon Dioxide 22 mmol/L (22-30); Chloride 110 mmol/L (98-107); Glucose 102 mg/dL (74-99); Potassium 5.3 mmol/L (3.5-5.1); Sodium 139 mmol/L (137-145); Total Bilirubin 0.3 mg/dL (0.2-1.3); Total Protein 7.2 g/dL (6.3-8.2)
--- NOTE | 2018-10-20 02:36 | XR ---
EXAMINATION TYPE: XR wrist complete LT DATE OF EXAM: 10/20/2018 COMPARISON: NONE HISTORY: Wrist pain TECHNIQUE: 4 views FINDINGS: There is a plate with screws fixating the distal radius. I see no acute fracture nor disloc ation. Carpal bones appear intact. There is osteopenia. Scaphoid appears intact. IMPRESSION: No acute abnormality of the left wrist.
[2018-10-20 02:44] LABS: Creatine Kinase 76 U/L (30-135)
[2018-10-20 02:49] LABS: INR 0.9 (<1.2); Partial Thromboplastin Time 22.4 sec (22.0-30.0); Prothrombin Time 9.7 sec (9.0-12.0)
[2018-10-20 02:58] LABS: Creatine Kinase MB 1.4 ng/mL (0.0-2.4); Troponin I <0.012 ng/mL (0.000-0.034)
[2018-10-20 03:58] VITALS: BP 142/65; PULSE 65; RESP 17
== END 2018-10-20 03:43 | disposition home or self-care (01) ==
LOC: EC 01:09
DX: S00.83XA Contusion of other part of head, initial encounter (principal); Z23 Encounter for immunization; I10 Essential (primary) hypertension; F17.200 Nicotine dependence, unspecified, uncomplicated; Z79.82 Long term (current) use of aspirin; Z79.899 Other long term (current) drug therapy; Z88.1 Allergy status to other antibiotic agents; Z88.2 Allergy status to sulfonamides; Z88.8 Allergy status to other drugs, medicaments and biological substances; W00.0XXA Fall on same level due to ice and snow, initial encounter; Y92.009 Unspecified place in unspecified non-institutional (private) residence as the place of occurrence of the external cause
CPT/HCPCS: 36415; 93005; 86900; 86901; 80053; 82550; 82553; 84484; 85025; 85610; 85730; 86850; 72170; 73110; 71045; 72125; 70486; 70450; 90715; 99284; 96360; 90471; G0480; 80320

== ENCOUNTER 2020-12-08 13:14 | Emergency (ER) | payer MEDICARE ==
[2020-12-08 14:10] VITALS: RESP 18; TEMP 98.2
[2020-12-08] MEDS ORDERED: PANTOPRAZOLE 40 MG/10 ML VIAL IVP STA (15:09)
[2020-12-08] MEDS ORDERED: KETOROLAC 15 MG/ML 1 ML VIAL IVP STA (15:09)
[2020-12-08] MEDS ORDERED: ONDANSETRON 4 MG/2 ML VIAL IVP STA (15:09)
[2020-12-08] MEDS ORDERED: SODIUM CHLORIDE 0.9% 1,000 ML IV STA (15:09)
[2020-12-08 15:31] LABS: Basophils % (A) 0 %; Eosinophils # (A) 0.3 k/uL (0-0.7); Eosinophils % (A) 2 %; HCT 39.6 % (34.0-46.0); Lymphocytes # (A) 1.1 k/uL (1.0-4.8); Lymphocytes % (A) 7 %; MCH 29.1 pg (25.0-35.0); MCHC 32.7 g/dL (31.0-37.0); Mean Platelet Volume 7.3; Monocytes # (A) 0.4 k/uL (0-1.0); Monocytes % (A) 3 %; Neutrophils # (A) 12.5 k/uL (1.3-7.7); Neutrophils % (A) 87 %; Platelet Count 253 k/uL (150-450); RBC 4.45 m/uL (3.80-5.40); RDW 13.9 % (11.5-15.5); WBC 14.3 k/uL (3.8-10.6)
[2020-12-08 15:48] LABS: INR 0.9 (<1.2); Prothrombin Time 9.8 sec (9.0-12.0)
[2020-12-08 15:49] LABS: Albumin 4.7 g/dL (3.5-5.0); Calcium 11.9 mg/dL (8.4-10.2); Total Bilirubin 0.8 mg/dL (0.2-1.3); Total Protein 7.9 g/dL (6.3-8.2)
[2020-12-08 15:51] LABS: Potassium 5.1 mmol/L (3.5-5.1)
[2020-12-08 15:52] LABS: Partial Thromboplastin Time 18.8 sec (22.0-30.0)
--- NOTE | 2020-12-08 16:00 | ED ---
Abdominal Pain HPI - General Chief Complaint: Abdominal Pain Stated Complaint: hernia Time Seen by Provider: 12/08/20 14:52 Source: patient, family Mode of arrival: ambulatory Limitations: no limitations - History of Present Illness Initial Comments: Patient is a 70-year-old female with history of hypertension, presenting to the emergency Department with complaints of vomiting for 2 days as well as increasing upper abdominal pain. Patient states she has a history of abdominal hernia and feels like the pain is getting worse. She has been unable to keep any food or liquids down. She also has history of AAA repair at [facility] in 2017. She denies any chest pain or shortness of breath at this time. She does admit to some burning of her throat. She has been having regular bowel movements until she started vomiting 2 days ago. She denies any hematuria or dysuria. She denies any fever or chills. She admits to history of , no other abdominal surgeries. She has no further complaints at this time. Upon arrival to the ER, her vital signs are stable. - Related Data Home Medications Medication Instructions Recorded Confirmed Aspirin 325 mg PO DAILY 03/25/17 12/08/20 Metoprolol Tartrate [Lopressor] 50 mg PO BID 03/25/17 12/08/20 hydrALAZINE HCL [Apresoline] 10 mg PO TID 03/25/17 12/08/20 lisinopriL [Zestril] 20 mg PO BID 03/25/17 12/08/20 Albuterol Inhaler [Ventolin Hfa 2 puff INHALATION RT-QID PRN 12/08/20 12/08/20 Inhaler] Amoxicillin 875 mg PO BID 12/08/20 12/08/20 Levothyroxine Sodium [Synthroid] 125 mcg PO AC-BRKFST 12/08/20 12/08/20 Previous Rx's Medication Instructions Recorded Benzonatate [Tessalon Perles] 100 mg PO TID PRN #15 capsule 12/08/20 Omeprazole [PriLOSEC] 20 mg PO AC-BRKFST #20 cap 12/08/20 Ondansetron Odt [Zofran Odt] 4 mg PO Q8HR PRN #10 tab 12/08/20 Allergies Allergy/AdvReac Type Severity Reaction Status Date / Time cephalexin [From Keflex] Allergy Rash/Hives Verified 12/08/20 15:15 Corticosteroids Allergy Rash/Hives Verified 12/08/20 15:15 (Glucocorticoids) ciprofloxacin [From Cipro] AdvReac Rash/Hives Verified 12/08/20 15:15 sulfamethoxazole AdvReac Rash/Hives Verified 12/08/20 15:15 [From Bactrim] trimethoprim [From Bactrim] AdvReac Rash/Hives Verified 12/08/20 15:15 Review of Systems ROS Statement: Those systems with pertinent positive or pertinent negative responses have been documented in the HPI. ROS Other: All systems not noted in ROS Statement are negative. Past Medical History Past Medical History: Hypertension Additional Past Medical History / Comment(s): AAA repair (February 27 2017.) History of Any Multi-Drug Resistant Organisms: None Reported Past Surgical History: Section Additional Past Surgical History / Comment(s): AAA repair Past Psychological History: No Psychological Hx Reported Smoking Status: Never smoker Past Alcohol Use History: None Reported Past Drug Use History: None Reported General Exam - General Exam Comments Initial Comments: GENERAL: Patient is well-developed and well-nourished. Patient is nontoxic and in no acute distress. HEAD: Atraumatic, normocephalic. EYES: Pupils equal round and reactive to light, extraocular movements intact, sclera anicteric, conjunctiva are normal. Eyelids were unremarkable. ENT: TMs normal, nares patent, oropharynx clear without exudates. Moist mucous membranes. NECK: Normal range of motion, supple without lymphadenopathy or JVD. LUNGS: Unlabored respirations. Breath sounds clear to auscultation bilaterally and equal. No wheezes rales or rhonchi. HEART: Regular rate and rhythm without murmurs, rubs or gallops. ABDOMEN: Soft, tender over epigastric area, patient has a large soft mass covering the majority of her upper right abdomen, consistent with her history of large hernia. No pain in her lower abdomen. : Deferred MUSCULOSKELETAL: Normal extremities with adequate strength and normal range of motion, no pitting or edema. No clubbing or cyanosis. NEUROLOGICAL: Patient is alert and oriented x 3. Motor and sensory are also intact. Cranial nerves II through XII grossly intact. Symmetrical smile. Normal speech, normal gait. PSYCH: Normal mood, normal affect. SKIN: Warm, Dry, normal turgor, no rashes or lesions noted. Limitations: no limitations Course Vital Signs 12/08/20 12/08/20 14:08 17:10 Temperature 98.2 F Pulse Rate 91 77 Respiratory 18 18 Rate Blood Pressure 136/66 152/67 O2 Sat by Pulse 95 98 Oximetry Medical Decision Making - Medical Decision Making Patient is a 70-year-old female here for nausea and vomiting 2 days as well as increasing abdominal pain. Patient's vital signs are stable upon arrival. Patient has a large ventral hernia on exam, mild epigastric discomfort. Labs show a very slight white count at 14.3 kidney function is stable with creatinine 1.34, lactic acid is normal at 1.3, lipase is 122. Did do a CT of the abdomen which shows a large epigastric ventral hernia, no evidence of bowel obstruction. Patient was given fluids, Protonix, Zofran and Toradol. She's been resting comfortably here ER with minimal discomfort. She's had no vomiting episodes. These findings with the patient. Patient has many of her doctors at [facility] and most likely will see a general surgeon at [facility] but would like a referral to the general surgeon here as well. I will give her outpatient follow-up. Strict return parameters were discussed with the patient and her son and they both verbalized understanding. Patient is stable for discharge. Patient is in agreement with this plan of care. Return parameters were discussed with the patient and they verbalized understanding. Case discussed with Dr. Dillard. - Lab Data Result diagrams: 12/08/20 15:24 12/08/20 15:24 Lab Results 12/08/20 12/08/20 12/08/20 Range/Units 15:24 15:24 15:24 WBC 14.3 H (3.8-10.6) k/uL RBC 4.45 (3.80-5.40) m/uL Hgb 13.0 (11.4-16.0) gm/dL Hct 39.6 (34.0-46.0) % MCV 89.0 (80.0-100.0) fL MCH 29.1 (25.0-35.0) pg MCHC 32.7 (31.0-37.0) g/dL RDW 13.9 (11.5-15.5) % Plt Count 253 (150-450) k/uL MPV 7.3 Neutrophils % 87 % Lymphocytes % 7 % Monocytes % 3 % Eosinophils % 2 % Basophils % 0 % Neutrophils # 12.5 H (1.3-7.7) k/uL Lymphocytes # 1.1 (1.0-4.8) k/uL Monocytes # 0.4 (0-1.0) k/uL Eosinophils # 0.3 (0-0.7) k/uL Basophils # 0.0 (0-0.2) k/uL PT 9.8 (9.0-12.0) sec INR 0.9 (<1.2) APTT 18.8 L (22.0-30.0) sec Sodium 137 (137-145) mmol/L Potassium 5.1 (3.5-5.1) mmol/L Chloride 100 (98-107) mmol/L Carbon Dioxide 26 (22-30) mmol/L Anion Gap 11 mmol/L BUN 40 H (7-17) mg/dL Creatinine 1.34 H (0.52-1.04) mg/dL Est GFR (CKD-EPI)AfAm 46 (>60 ml/min/1.73 sqM) Est GFR (CKD-EPI)NonAf 40 (>60 ml/min/1.73 sqM) Glucose 120 H (74-99) mg/dL Plasma Lactic Acid Juan Manuel (0.7-2.0) mmol/L Calcium 11.9 H (8.4-10.2) mg/dL Total Bilirubin 0.8 (0.2-1.3) mg/dL AST 29 (14-36) U/L ALT 15 (4-34) U/L Alkaline Phosphatase 78 (38-126) U/L Total Protein 7.9 (6.3-8.2) g/dL Albumin 4.7 (3.5-5.0) g/dL Amylase 109 (30-110) U/L Lipase 122 (23-300) U/L 12/08/20 Range/Units 15:24 WBC (3.8-10.6) k/uL RBC (3.80-5.40) m/uL Hgb (11.4-16.0) gm/dL Hct (34.0-46.0) % MCV (80.0-100.0) fL MCH (25.0-35.0) pg MCHC (31.0-37.0) g/dL RDW (11.5-15.5) % Plt Count (150-450) k/uL MPV Neutrophils % % Lymphocytes % % Monocytes % % Eosinophils % % Basophils % % Neutrophils # (1.3-7.7) k/uL Lymphocytes # (1.0-4.8) k/uL Monocytes # (0-1.0) k/uL Eosinophils # (0-0.7) k/uL Basophils # (0-0.2) k/uL PT (9.0-12.0) sec INR (<1.2) APTT (22.0-30.0) sec Sodium (137-145) mmol/L Potassium (3.5-5.1) mmol/L Chloride (98-107) mmol/L Carbon Dioxide (22-30) mmol/L Anion Gap mmol/L BUN (7-17) mg/dL Creatinine (0.52-1.04) mg/dL Est GFR (CKD-EPI)AfAm (>60 ml/min/1.73 sqM) Est GFR (CKD-EPI)NonAf (>60 ml/min/1.73 sqM) Glucose (74-99) mg/dL Plasma Lactic Acid Juan Manuel 1.3 (0.7-2.0) mmol/L Calcium (8.4-10.2) mg/dL Total Bilirubin (0.2-1.3) mg/dL AST (14-36) U/L ALT (4-34) U/L Alkaline Phosphatase (38-126) U/L Total Protein (6.3-8.2) g/dL Albumin (3.5-5.0) g/dL Amylase (30-110) U/L Lipase (23-300) U/L - EKG Data EKG Comments: Normal sinus rhythm, possible left atrial enlargement, nonspecific ST abnormality, no signs of acute ischemia. Ventricular rate 87, RI interval 132, QT 342. Compared to previous EKG on 10/20/2018. Disposition Clinical Impression: Abdominal pain, Nausea & vomiting, Ventral hernia Disposition: HOME SELF-CARE Condition: Stable Instructions (If sedation given, give patient instructions): Ventral Hernia (ED) Additional Instructions: Please return to the Emergency Department if symptoms worsen or any other concerns. Recommend taking Zofran for any additional nausea. Also recommend omeprazole for possible small ulcer. Please follow up with general surgery as discussed regarding large hernia. Prescriptions: Omeprazole [PriLOSEC] 20 mg PO AC-BRKFST #20 cap Benzonatate [Tessalon Perles] 100 mg PO TID PRN #15 capsule PRN Reason: Cough Ondansetron Odt [Zofran Odt] 4 mg PO Q8HR PRN #10 tab PRN Reason: Nausea Is patient prescribed a controlled substance at d/c from ED?: No Referrals: Donavan Ruiz MD [Primary Care Provider] - 1-2 days Ron Rosas MD [Medical Doctor] - 1-2 days
--- NOTE | 2020-12-08 17:19 | CT ---
EXAMINATION TYPE: CT abdomen pelvis w con DATE OF EXAM: 12/08/2020 COMPARISON: None HISTORY: Abdominal pain, nausea, vomiting with large abdominal mass. CT DLP: 1441.6 mGycm Automated exposure control for dose reduction was used. CONTRAST: Performed with IV Contrast, patient injected with 80 mL of Isovue 300. Images obtained from the diaphragm to the floor the pelvis with IV contrast. There is small right pleural effusion. There is atherosclerotic calcification in the abdominal aorta. There is 4.2 cm aneurysm of the upper abdominal aorta. There is no dissection. Liver gallbladder spleen stomach pancreas appear intact. The bile ducts are not dilated. There is a l arge epigastric ventral hernia contains the gastric antrum and multiple loops of small bowel. Most of the small bowel is in the ventral hernia. Transverse colon is in the hernia. There is no evidence of a bowel obstruction. There is no adrenal mass. Kidneys show satisfactory contrast opacification. There is no hydronephrosi s. There are left renal cortical cysts that measure up to 2.5 cm. There is no retroperitoneal adenopa thy. Bladder distends smoothly. There is no inguinal hernia. There is no free fluid in the pelvis. Ap pendix is not seen. There is no sign of thickened appendix. Lumbar vertebra have normal alignment. There is no compression fracture. The bony pelvis is intact. H ip joints are intact. IMPRESSION: Large epigastric ventral hernia. No evidence of a bowel obstruction. Ventral hernia is significantly increased in size compared to chest CT scan of 07/15/2016. 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 No dissection. Small right pleural effusion.
[2020-12-08 17:30] VITALS: BP 152/67; PULSE 77
== END 2020-12-08 18:25 | disposition home or self-care (01) ==
LOC: EC 13:14
DX: K43.9 Ventral hernia without obstruction or gangrene (principal); R11.2 Nausea with vomiting, unspecified; I10 Essential (primary) hypertension; Z79.899 Other long term (current) drug therapy; Z88.1 Allergy status to other antibiotic agents; Z88.2 Allergy status to sulfonamides; Z88.8 Allergy status to other drugs, medicaments and biological substances
CPT/HCPCS: 93005; 80053; 82150; 83605; 83690; 85025; 85610; 85730; 74177; 99284; 96374; 96375 ×2; 96361 ×3; J2405; J1885; C9113; Q9967

== ENCOUNTER 2023-09-19 01:42 | Emergency (ER) | payer MEDICARE ==
--- NOTE | 2023-09-19 02:20 | XR ---
EXAM: XR Chest, 2 Views CLINICAL HISTORY: ITS.REASON XR Reason: difficulty breathing TECHNIQUE: Frontal and lateral views of the chest. COMPARISON: No relevant prior studies available. FINDINGS: Lungs: Unremarkable. No consolidation. Pleural space: Unremarkable. No pneumothorax. Heart: Cardiomegaly. Calcified aorta. Mediastinum: Unremarkable. Normal mediastinal contour. Bones/joints: Sternotomy wires. No acute fracture. IMPRESSION: No acute findings in the chest.
[2023-09-19 02:21] LABS: INR 0.9 (<1.2); Partial Thromboplastin Time 22.2 sec (22.0-30.0); Prothrombin Time 9.6 sec (10.0-12.5)
[2023-09-19 02:22] LABS: Basophils # (A) 0.1 k/uL (0-0.2); Basophils % (A) 1 %; Eosinophils # (A) 0.5 k/uL (0-0.7); Eosinophils % (A) 7 %; HCT 37.5 % (34.0-46.0); HGB 12.2 gm/dL (11.4-16.0); Hypochromasia Slight; Lymphocytes # (A) 1.3 k/uL (1.0-4.8); Lymphocytes % (A) 20 %; MCH 28.2 pg (25.0-35.0); MCHC 32.5 g/dL (31.0-37.0); MCV 86.9 fL (80.0-100.0); Mean Platelet Volume 7.3; Monocytes # (A) 0.4 k/uL (0-1.0); Monocytes % (A) 6 %; Neutrophils # (A) 4.1 k/uL (1.3-7.7); Neutrophils % (A) 65 %; Platelet Count 273 k/uL (150-450); RBC 4.31 m/uL (3.80-5.40); RDW 15.7 % (11.5-15.5); WBC 6.4 k/uL (3.8-10.6)
[2023-09-19 03:14] LABS: ALT 18 U/L (4-34); AST 24 U/L (14-36); African American GFR (CKD) 41 (>60 ml/min/1.73 sqM); Albumin 4.2 g/dL (3.5-5.0); Alkaline Phosphatase 84 U/L (38-126); Anion Gap 12 mmol/L; Blood Urea Nitrogen 20 mg/dL (7-17); Calcium 11.4 mg/dL (8.4-10.2); Carbon Dioxide 21 mmol/L (22-30); Chloride 107 mmol/L (98-107); Glucose 120 mg/dL (74-99); Non-African American GFR(CKD) 36 (>60 ml/min/1.73 sqM); Potassium 4.8 mmol/L (3.5-5.1); Sodium 140 mmol/L (137-145); Total Bilirubin 0.5 mg/dL (0.2-1.3)
--- NOTE | 2023-09-19 07:24 | ED ---
Pediatric SOB HPI - General Source: patient, RN notes reviewed Mode of arrival: ambulatory Limitations: no limitations <Daily Burnham - Last Filed: 09/19/23 07:23> <Maldonado Hoover - Last Filed: 09/19/23 09:57> - General Chief Complaint: Shortness of Breath Stated Complaint: Chest pain, SOB Time Seen by Provider: 09/19/23 07:23 - History of Present Illness Initial Comments: 73-year-old female presents the emergency department with a chief complaint of worsening cough. She reports this is been on going for the last for months. She reports having a wheeze. (Daily Burnham) Dictation was produced using [employer] dictation software. please excuse any grammatical, word or spelling errors. Chief Complaint: 73-year-old female presents emergency department for acute on chronic dyspnea History of Present Illness: Patient 73-year-old female presents emergency department for acute on chronic dyspnea she has history of asthma. She also has history of smoking. States that she's been short of breath since the summer. She has never seen a primary care doctor or chimney builder helper regarding this. She frequency urgent care and has been on antibiotics multiple occasions. She is currently on antibiotics prescribed from the urgent care. Since that she came to the emergency department because her wheezing seems to be much worse. Denies any chest pain. No fever, chills or night sweats. Denies any known history of heart failure. The ROS documented in this emergency department record has been reviewed and confirmed by me. Those systems with pertinent positive or negative responses have been documented in the HPI. All other systems are other negative and/or noncontributory. (Maldonado Hoover) - Related Data Home Medications Medication Instructions Recorded Confirmed Aspirin 325 mg PO DAILY 03/25/17 12/08/20 Metoprolol Tartrate [Lopressor] 50 mg PO BID 03/25/17 12/08/20 hydrALAZINE HCL [Apresoline] 10 mg PO TID 03/25/17 12/08/20 lisinopriL [Zestril] 20 mg PO BID 03/25/17 12/08/20 Albuterol Inhaler [Ventolin Hfa 2 puff INHALATION RT-QID PRN 12/08/20 12/08/20 Inhaler] Amoxicillin 875 mg PO BID 12/08/20 12/08/20 Levothyroxine Sodium [Synthroid] 125 mcg PO AC-BRKFST 12/08/20 12/08/20 Previous Rx's Medication Instructions Recorded Benzonatate [Tessalon Perles] 100 mg PO TID PRN #15 capsule 12/08/20 Omeprazole [PriLOSEC] 20 mg PO AC-BRKFST #20 cap 12/08/20 Ondansetron Odt [Zofran Odt] 4 mg PO Q8HR PRN #10 tab 12/08/20 Albuterol Inhaler [Ventolin Hfa 1 - 2 puff INHALATION RT-Q6H PRN 09/19/23 Inhaler] #1 each Allergies Allergy/AdvReac Type Severity Reaction Status Date / Time cephalexin [From Keflex] Allergy Rash/Hives Verified 09/19/23 01:47 Corticosteroids Allergy Rash/Hives Verified 09/19/23 01:47 (Glucocorticoids) ciprofloxacin [From Cipro] AdvReac Rash/Hives Verified 09/19/23 01:47 sulfamethoxazole AdvReac Rash/Hives Verified 09/19/23 01:47 [From Bactrim] trimethoprim [From Bactrim] AdvReac Rash/Hives Verified 09/19/23 01:47 Review of Systems ROS Other: All systems not noted in ROS Statement are negative. <Daily Burnham - Last Filed: 09/19/23 07:23> ROS Other: All systems not noted in ROS Statement are negative. <Maldonado Hoover - Last Filed: 09/19/23 09:57> ROS Statement: Those systems with pertinent positive or pertinent negative responses have been documented in the HPI. Past Medical History Past Medical History: Hypertension Additional Past Medical History / Comment(s): AAA repair (February 27 2017.) History of Any Multi-Drug Resistant Organisms: None Reported Past Surgical History: Section Additional Past Surgical History / Comment(s): AAA repair Past Psychological History: No Psychological Hx Reported Smoking Status: Never smoker Past Alcohol Use History: None Reported Past Drug Use History: None Reported <Daily Burnham - Last Filed: 09/19/23 07:23> General Exam Limitations: no limitations <Daily Burnham - Last Filed: 09/19/23 07:23> <Maldonado Hoover - Last Filed: 09/19/23 09:57> - General Exam Comments Initial Comments: Visual Physical Exam Vital signs reviewed General: Well-appearing, nontoxic, no acute distress. Head: Normocephalic, atraumatic Eyes: PERRLA, EOMI ENT: Airway patent Chest: Nonlabored breathing Skin: No visual rash, normal skin tone Neuro: Alert and oriented 3 Musculoskeletal: No gross abnormalities (Daily Burnham) PHYSICAL EXAM: General Impression: Alert and oriented x3, not in acute distress HEENT: Normocephalic atraumatic, extra-ocular movements intact, pupils equal and reactive to light bilaterally, mucous membranes moist. Cardiovascular: Heart regular rate and rhythm Chest: Able to complete full sentences, no retractions, no tachypnea, diffuse lung wheezing Abdomen: abdomen soft, non-tender, non-distended, no organomegaly Musculoskeletal: Pulses present and equal in all extremities, no peripheral edema Motor: no focal deficits noted Neurological: CN II-XII grossly intact, no focal motor or sensory deficits noted Skin: Intact with no visualized rashes Psych: Normal affect and mood (Maldonado Hoover) Course Vital Signs 09/19/23 09/19/23 09/19/23 01:43 07:42 08:49 Temperature 97.6 F 97.3 F L Pulse Rate 80 96 77 Respiratory 18 18 18 Rate Blood Pressure 170/81 167/82 153/71 O2 Sat by Pulse 95 96 97 Oximetry 09/19/23 09/19/23 08:55 09:15 Temperature Pulse Rate 89 92 Respiratory Rate Blood Pressure O2 Sat by Pulse Oximetry Medical Decision Making - Lab Data Result diagrams: 09/19/23 01:49 09/19/23 01:49 <Daily Burnham - Last Filed: 09/19/23 07:23> - Lab Data Result diagrams: 09/19/23 01:49 09/19/23 01:49 <Maldonado Hoover - Last Filed: 09/19/23 09:57> - Medical Decision Making Was pt. sent in by a medical professional or institution (, PA, CHIEF CLINICAL DIETITIAN, urgent care, hospital, or skilled nursing...) When possible be specific @ -No Did you speak to anyone other than the patient for history (EMS, parent, family, police, friend...)? What history was obtained from this source @ -No Did you review nursing and triage notes (agree or disagree)? Why? @ -I reviewed and agree with nursing and triage notes Were old charts reviewed (outside hosp., previous admission, EMS record, old EKG, old radiological studies, urgent care reports/EKG's, skilled nursing records)? Report findings @ -No old charts were reviewed Differential Diagnosis (chest pain, altered mental status, abdominal pain women, abdominal pain men, vaginal bleeding, musculoskeletal, weakness, fever, dyspnea, syncope, headache, dizziness, GI bleed, back pain, seizure, CVA, palpatations, mental health)? @ -Differential Dyspnea: Coronary syndrome, arrhythmia, tamponade, asthma, COPD, pulmonary embolism, pneumonia, pneumothorax, pulmonary effusion, anaphylaxis, diabetic ketoacidosis, flailed chest, pulmonary contusion, diaphragmatic rupture, anemia, neuromuscular, this is not meant to be an all-inclusive list. EKG interpreted by me (3pts min.). @ -None done X-rays interpreted by me (1pt min.). @ -Chest x-ray shows no acute processes CT interpreted by me (1pt min.). @ -None done U/S interpreted by me (1pt. min.). @ -None done What testing was considered but not performed or refused? (CT, X-rays, U/S, labs)? Why? @ -None What meds were considered but not given or refused? Why? @ -None Did you discuss the management of the patient with other professionals (professionals i.e. , PA, CHIEF CLINICAL DIETITIAN, lab, RT, psych nurse, social and political studies professor, finance director, teacher, parachute officer, caseworker protective services)? Give summary @ -No Was smoking cessation discussed for >3mins.? @ -No Was critical care preformed (if so, how long)? @ -No Were there social determinants of health that impacted care today? How? (Homelessness, low income, unemployed, alcoholism, drug addiction, transportation, low edu. Level, literacy, decrease access to med. care, usp, rehab)? @ -No Was there de-escalation of care discussed even if they declined (Discuss DNR or withdrawal of care, Hospice)? DNR status @ -No What co-morbidities impacted this encounter? (DM, HTN, Smoking, COPD, CAD, Cancer, CVA, ARF, Chemo, Hep., AIDS, mental health diagnosis, sleep apnea, morbid obesity)? @ -None Was patient admitted / discharged? Hospital course, mention meds given and route, prescriptions, significant lab abnormalities, going to OR and other pertinent info. @ -73-year-old female presents emergency department for acute on chronic wheezing and dyspnea. Vital signs upon arrival are within acceptable limits. Patient in no acute distress. She does have significant wheezing with a uscultation of lungs bilaterally. Laboratory evaluation obtained. CBC, coag panel metabolic panel cardiac enzymes and BNP are testing all negative. Chest x-ray is nonacute. Patient given breathing treatment along with 10 mg of IV Decadron. Wheezing is resolved. Patient agreeable for discharge. She is told that it is important she follow up with outpatient chimney builder helper for outpatient management of wheezing. We will plan. Patient provided with inhaler refill. Undiagnosed new problem with uncertain prognosis? @ -No Drug Therapy requiring intensive monitoring for toxicity (Heparin, Nitro, Insulin, Cardizem)? @ -No Were any procedures done? @ -No Diagnosis/symptom? Acute, or Chronic, or Acute on Chronic? Uncomplicated (without systemic symptoms) or Complicated (systemic symptoms)? @ -Wheezing Side effects of treatment? @ -No Exacerbation, Progression, or Severe Exacerbation? @ -No Poses a threat to life or bodily function? How? (Chest pain, [place], CA, pneumonia, PE, COPD, DKA, ARF, appy, cholecystitis, CVA, Diverticulitis, Homicidal, Suicidal, threat to staff... and all critical care pts) @ -yes (Maldonado Hoover) - Lab Data Lab Results 09/19/23 09/19/23 09/19/23 Range/Units 01:49 01:49 01:49 WBC 6.4 (3.8-10.6) k/uL RBC 4.31 (3.80-5.40) m/uL Hgb 12.2 (11.4-16.0) gm/dL Hct 37.5 (34.0-46.0) % MCV 86.9 (80.0-100.0) fL MCH 28.2 (25.0-35.0) pg MCHC 32.5 (31.0-37.0) g/dL RDW 15.7 H (11.5-15.5) % Plt Count 273 (150-450) k/uL MPV 7.3 Neutrophils % 65 % Lymphocytes % 20 % Monocytes % 6 % Eosinophils % 7 % Basophils % 1 % Neutrophils # 4.1 (1.3-7.7) k/uL Lymphocytes # 1.3 (1.0-4.8) k/uL Monocytes # 0.4 (0-1.0) k/uL Eosinophils # 0.5 (0-0.7) k/uL Basophils # 0.1 (0-0.2) k/uL Hypochromasia Slight PT 9.6 L (10.0-12.5) sec INR 0.9 (<1.2) APTT 22.2 (22.0-30.0) sec Sodium 140 (137-145) mmol/L Potassium 4.8 (3.5-5.1) mmol/L Chloride 107 (98-107) mmol/L Carbon Dioxide 21 L (22-30) mmol/L Anion Gap 12 mmol/L BUN 20 H (7-17) mg/dL Creatinine 1.43 H (0.52-1.04) mg/dL Est GFR (CKD-EPI)AfAm 41 (>60 ml/min/1.73 sqM) Est GFR (CKD-EPI)NonAf 36 (>60 ml/min/1.73 sqM) Glucose 120 H (74-99) mg/dL Plasma Lactic Acid Juan Manuel (0.7-2.0) mmol/L Calcium 11.4 H (8.4-10.2) mg/dL Total Bilirubin 0.5 (0.2-1.3) mg/dL AST 24 (14-36) U/L ALT 18 (4-34) U/L Alkaline Phosphatase 84 (38-126) U/L Troponin I (0.000-0.034) ng/mL NT-Pro-B Natriuret Pep pg/mL Total Protein 7.0 (6.3-8.2) g/dL Albumin 4.2 (3.5-5.0) g/dL Influenza Type A (PCR) (Not Detectd) Influenza Type B (PCR) (Not Detectd) RSV (PCR) (Not Detectd) SARS-CoV-2 (PCR) (Not Detectd) 09/19/23 09/19/23 09/19/23 Range/Units 01:49 01:49 01:49 WBC (3.8-10.6) k/uL RBC (3.80-5.40) m/uL Hgb (11.4-16.0) gm/dL Hct (34.0-46.0) % MCV (80.0-100.0) fL MCH (25.0-35.0) pg MCHC (31.0-37.0) g/dL RDW (11.5-15.5) % Plt Count (150-450) k/uL MPV Neutrophils % % Lymphocytes % % Monocytes % % Eosinophils % % Basophils % % Neutrophils # (1.3-7.7) k/uL Lymphocytes # (1.0-4.8) k/uL Monocytes # (0-1.0) k/uL Eosinophils # (0-0.7) k/uL Basophils # (0-0.2) k/uL Hypochromasia PT (10.0-12.5) sec INR (<1.2) APTT (22.0-30.0) sec Sodium (137-145) mmol/L Potassium (3.5-5.1) mmol/L Chloride (98-107) mmol/L Carbon Dioxide (22-30) mmol/L Anion Gap mmol/L BUN (7-17) mg/dL Creatinine (0.52-1.04) mg/dL Est GFR (CKD-EPI)AfAm (>60 ml/min/1.73 sqM) Est GFR (CKD-EPI)NonAf (>60 ml/min/1.73 sqM) Glucose (74-99) mg/dL Plasma Lactic Acid Juan Manuel 1.3 (0.7-2.0) mmol/L Calcium (8.4-10.2) mg/dL Total Bilirubin (0.2-1.3) mg/dL AST (14-36) U/L ALT (4-34) U/L Alkaline Phosphatase (38-126) U/L Troponin I <0.012 (0.000-0.034) ng/mL NT-Pro-B Natriuret Pep pg/mL Total Protein (6.3-8.2) g/dL Albumin (3.5-5.0) g/dL Influenza Type A (PCR) Not Detected (Not Detectd) Influenza Type B (PCR) Not Detected (Not Detectd) RSV (PCR) Not Detected (Not Detectd) SARS-CoV-2 (PCR) Not Detected (Not Detectd) 09/19/23 09/19/23 Range/Units 07:42 07:42 WBC (3.8-10.6) k/uL RBC (3.80-5.40) m/uL Hgb (11.4-16.0) gm/dL Hct (34.0-46.0) % MCV (80.0-100.0) fL MCH (25.0-35.0) pg MCHC (31.0-37.0) g/dL RDW (11.5-15.5) % Plt Count (150-450) k/uL MPV Neutrophils % % Lymphocytes % % Monocytes % % Eosinophils % % Basophils % % Neutrophils # (1.3-7.7) k/uL Lymphocytes # (1.0-4.8) k/uL Monocytes # (0-1.0) k/uL Eosinophils # (0-0.7) k/uL Basophils # (0-0.2) k/uL Hypochromasia PT (10.0-12.5) sec INR (<1.2) APTT (22.0-30.0) sec Sodium (137-145) mmol/L Potassium (3.5-5.1) mmol/L Chloride (98-107) mmol/L Carbon Dioxide (22-30) mmol/L Anion Gap mmol/L BUN (7-17) mg/dL Creatinine (0.52-1.04) mg/dL Est GFR (CKD-EPI)AfAm (>60 ml/min/1.73 sqM) Est GFR (CKD-EPI)NonAf (>60 ml/min/1.73 sqM) Glucose (74-99) mg/dL Plasma Lactic Acid Juan Manuel (0.7-2.0) mmol/L Calcium (8.4-10.2) mg/dL Total Bilirubin (0.2-1.3) mg/dL AST (14-36) U/L ALT (4-34) U/L Alkaline Phosphatase (38-126) U/L Troponin I <0.012 (0.000-0.034) ng/mL NT-Pro-B Natriuret Pep 790 pg/mL Total Protein (6.3-8.2) g/dL Albumin (3.5-5.0) g/dL Influenza Type A (PCR) (Not Detectd) Influenza Type B (PCR) (Not Detectd) RSV (PCR) (Not Detectd) SARS-CoV-2 (PCR) (Not Detectd) Disposition <Daily Burnham - Last Filed: 09/19/23 07:23> Is patient prescribed a controlled substance at d/c from ED?: No Time of Disposition: 09:57 <Maldonado Hoover - Last Filed: 09/19/23 09:57> Clinical Impression: Wheezing Disposition: HOME SELF-CARE Condition: Good Instructions (If sedation given, give patient instructions): Wheezing (ED) Prescriptions: Albuterol Inhaler [Ventolin Hfa Inhaler] 1 - 2 puff INHALATION RT-Q6H PRN #1 each PRN Reason: Dyspnea Referrals: Manoj Boykin MD [STAFF PHYSICIAN] - 1-2 days
[2023-09-19] MEDS ORDERED: ALBUTEROL NEBULIZED 2.5 MG/3 ML INHALATION STA (08:10)
[2023-09-19] MEDS ORDERED: DEXAMETHASONE SOD PHOSPHATE 10 MG/ML 1 ML VIAL IV STA (08:10)
[2023-09-19] MEDS ORDERED: IPRATROPIUM 0.5 MG/2.5 ML NEBU INHALATION STA (08:10)
[2023-09-19 10:37] VITALS: BP 153/103; PULSE 97; RESP 16; TEMP 98
== END 2023-09-19 10:18 | disposition home or self-care (01) ==
LOC: EC 01:42
DX: R06.2 Wheezing (principal); I10 Essential (primary) hypertension; Z79.82 Long term (current) use of aspirin; Z79.899 Other long term (current) drug therapy; Z88.2 Allergy status to sulfonamides; Z88.8 Allergy status to other drugs, medicaments and biological substances; Z20.822 Contact with and (suspected) exposure to COVID-19
CPT/HCPCS: 36415; 94640; 93005; 83880; 80053; 83605; 84484; 85025; 85610; 85730; 87636; 71046; 99285; 96374; J1100